=== PATIENT | male | born 1945 | race Caucasian/White ===

== ENCOUNTER 2018-04-17 03:26 | Inpatient (IN) ==
[2018-04-17 03:46] LABS: Basophils % 0.5 % (0.0-0.8); Eosinophils # 0.2 10*3/uL (0.0-0.87); Hematocrit 40.7 VOL% (42.0-52.0); Hemoglobin 13.4 GM/DL (14.0-18.0); Immature Granulocytes % 0.3 %; Immature Granulocytes Absolute 0.02 #; Lymphocytes # 1.5 10*3/uL (1.4-4.0); Lymphocytes % 23.1 % (21.2-54.2); Mean Corpuscular HGB Conc 32.9 GM/DL (32-36); Mean Corpuscular Hemoglobin 29 PG (27-34); Mean Corpuscular Volume 87.3 FL (87-102); Mean Platelet Volume 9.5 FL (9.6-12.0); Monocytes # 0.5 10*3/uL (0.11-0.8); Monocytes % 7.5 % (1.7-12.7); Neutrophils # 4.2 10*3/uL (1.4-7.4); Neutrophils % 65.6 % (38.7-73.9); Platelet Count 213 T/CUMM (130-400); Red Blood Count 4.66 MC/CUMM (3.8-5.5); Red Cell Distribution Width 12.9 % (9.3-17.3); White Blood Count 6.4 T/CUMM (4-12)
[2018-04-17 04:16] LABS: Albumin 3.3 G/DL (3.4-5.0); Bilirubin,Total 0.4 MG/DL (0.2-1.0); Calcium 8.6 MG/DL (8.5-10.1); Osmolality,Calculated 282.4 MOS/KG (273-304); Potassium 4.3 MMOL/L (3.5-5.1); Total Protein 6.8 G/DL (6.4-8.3)
[2018-04-17] MEDS ORDERED: DILTIAZEM 50 MG/10 ML VIAL IV STA (04:26)
[2018-04-17] MEDS ORDERED: DILTIAZEM 25 MG/5 ML VIAL IV STA (04:30)
[2018-04-17] MEDS ORDERED: ONDANSETRON 4 MG/2 ML VIAL IV PRN (04:38)
[2018-04-17] MEDS: DILTIAZEM INJ 100 MG in SODIUM CHLORIDE 0.9% 100 ML IV SCH (05:02)
[2018-04-17] MEDS: APIXABAN 5 MG TABLET PO SCH ×2 (11:01→21:55)
[2018-04-17] MEDS: POTASSIUM CHLORIDE 20 MEQ TABLET PO SCH ×2 (11:01→21:55)
[2018-04-17] MEDS: SOTALOL 80 MG TABLET PO SCH ×2 (11:01→21:56)
[2018-04-17] MEDS: IRBESARTAN 150 MG TABLET PO SCH (11:15)
[2018-04-17] MEDS: METOPROLOL SUCCINATE XL 50 MG TABLET PO SCH ×2 (11:15→21:55)
[2018-04-17] MEDS: ASCORBIC ACID 500 MG TABLET PO SCH ×2 (11:15→21:55)
[2018-04-17] MEDS ORDERED: ATORVASTATIN 10 MG TABLET PO SCH (21:00)
[2018-04-17] MEDS ORDERED: LATANOPROST 0.005% OPH SOLN 2.5 ML BOTTLE BOTH EYES SCH (21:00)
[2018-04-18] MEDS: DILTIAZEM INJ 100 MG in SODIUM CHLORIDE 0.9% 100 ML IV SCH (06:34)
[2018-04-18] MEDS ORDERED: PANTOPRAZOLE 40 MG TABLET PO SCH (09:00)
[2018-04-18] MEDS ORDERED: METOPROLOL SUCCINATE XL 100 MG TABLET PO SCH (09:00)
[2018-04-18] MEDS: ASCORBIC ACID 500 MG TABLET PO SCH (09:40)
[2018-04-18] MEDS: SOTALOL 80 MG TABLET PO SCH (09:40)
[2018-04-18] MEDS: POTASSIUM CHLORIDE 20 MEQ TABLET PO SCH (09:40)
[2018-04-18] MEDS: APIXABAN 5 MG TABLET PO SCH (09:40)
[2018-04-18] MEDS: IRBESARTAN 150 MG TABLET PO SCH (09:40)
[2018-04-18 11:54] VITALS: BP 166/74
== END 2018-04-18 14:13 | disposition home or self-care (01) | DRG 309 ==
LOC: EDBD → EDUNIT# → N.ED 03:26 → N.EDINP 04:38 → N.2W 11:12 → N.TELEN 14:19
PROVIDERS: ADMIT Internal Medicine Cardiovascular Disease; ATTEND Internal Medicine Cardiovascular Disease